=== PATIENT | male | born 1975 | race Hispanic/Latino ===

== ENCOUNTER 2018-06-11 09:16 | Day surgery (SDC) | payer OTHER, SELFPAY ==
[2018-06-08 07:55] VITALS: BMI 29.7
[2018-06-11 10:14] VITALS: BP 130/87; PULSE 61; RESP 16; TEMP 36.6; O2SAT 99; BMI 29.7
[2018-06-11] MEDS: LACTATED RINGERS 1,000 ML 42 ML IV ×2 (10:20→12:35)
--- NOTE | 2018-06-11 11:34 | PM.PREOP ---
Pre-operative Note Interval Note Pre-op Check: Yes History & Physical Reviewed by Physician Changes: No
[2018-06-11] MEDS: CEFAZOLIN 2 GM/100 ML FROZ.PIGGY IV (11:55)
--- NOTE | 2018-06-11 12:19 | SUR.OPER ---
Supine on padded OR bed, head on pillow, Right arm on large padded arm board controlled by surgical team, Left arm secured on padded arm board at <90 degrees abduction, legs uncrossed, safety belt at thigh.
[2018-06-11] MEDS: BUPIVACAINE 0.5% W/ EPI (PF) VIAL 30 ML INJ (12:33)
--- NOTE | 2018-06-11 13:07 | PM.OP.1 ---
Operative Date/Time/Diagnoses Date of procedure: 06/11/18 Time of procedure: 12:00 Pre-op diagnosis: Right distal biceps rupture Post-op diagnosis: same Procedure & Clinicians Procedure: Right distal biceps repair Same procedure as scheduled: Yes Indications: Right distal biceps rupture Surgeon: Quirino Hinton Cell Room Supervisor: Svetlana Haynes Anesthesia Type: General Operative Notes Findings: Complete rupture of the distal biceps with some attachment of pseudo tendinous material at the bicipital tuberosity Closure Type: primary Specimen(s): none sent Estimated Blood Loss (mL): 5 Blood products transfused: none Tourniquet time (min): 45 Procedure in detail: On date of service, patient was met in the holding area. Operative site was signed and witnessed by the OR staff. The surgery once again discussed with patient and any remaining questions they had were answered fully. Patient was taken back to the operating theater and placed on the operating table in the supine position. Great care taken to ensure that all bony prominences were properly padded. A well-padded tourniquet was placed up along the upper extremity. A timeout was performed to verify patient's name, procedure, and operative site. A diagonal incision was made starting at proximal medial and going to distal radial. The lateral antecubital cutaneous nerve was identified and protected. Due to the acute nature of the rupture we were able to bluntly dissect down to the bicipital tuberosity. A periosteal elevator was used to remove any remaining tendons off the footprint. Then a curved hemostat was used to retrieve the tendon. The distal end of the tendon was cleaned up. Any pseudo-tendinous material or fibrinous material was removed. Next, an Endobutton was stitched at the end of the tendons. A locking whipstitch suture was used to secure the Endobutton to the distal bicep tendon. A #2 the cord was used for the suture. 2 separate sutures were then used to go up and then down to the tendon to separate times. There was a total of 4 locking strands. These were passed through the center of the Endobutton. The tendon was then wrapped in a moist Ray-Mariangel. Next, A guidewire was placed through the bicipital tuberosity. The proximal aspect of the cortex was drilled to 8 mm. The wound was then copiously irrigated to remove any bony fragments. The distal cortex was drilled to 4 mm. The incision was irrigated again to remove any remaining bony fragments. Sutures were then placed through the lateral holes of the Endo button. These were then placed into the guidewire and passed through a bony tunnel and out the forearm. Those marionette Sutures were used to flip the Endobutton and put it into its appropriate position as a buttress. This provided a tsai repair of the biceps tendon. Next, a tenodesis screw was placed to provide additional fixation to the tendon in the bony tunnel. The wound was copiously irrigated again and closed in a layered fashion. Patient was cleaned dried and dressed and he was placed into a splint. Patient was taken to the PACU in stable condition. Postoperatively, neurovascular check was done to the hand. Patient had a 2+ radial pulse and brisk cap refill. Patient had no signs of any posterior interosseous nerve dysfunction. Patient was able to easily fully extend the fingers and the thumb. Complications: none Condition: stable Disposition: PACU Plan for aftercare: Patient will follow our postoperative protocol for distal biceps repair
[2018-06-11 13:16] VITALS: BP 111/78; PULSE 95; RESP 16; TEMP 36.3; O2SAT 91
[2018-06-11 13:20] VITALS: BP 137/85; PULSE 90; RESP 13; O2SAT 98
[2018-06-11 13:26] VITALS: BP 119/77; PULSE 80; RESP 15; O2SAT 98
[2018-06-11 13:30] VITALS: BP 119/80; PULSE 77; RESP 15; O2SAT 97
[2018-06-11] MEDS: OXYCODONE/ACETAMINOPHEN 5/325 TABLET 1 TAB PO (13:32)
[2018-06-11 13:57] VITALS: BP 121/84; PULSE 71; RESP 16; TEMP 36.6; O2SAT 98
== END 2018-06-11 14:54 | disposition home or self-care (01) ==
PROVIDERS: Visit Provider Orthopaedic Surgery
PROC: (CPT 24341; principal; 2018-06-11 14:30)
DX: S46.211A Strain of muscle, fascia and tendon of other parts of biceps, right arm, initial encounter (principal); X50.9XXA Other and unspecified overexertion or strenuous movements or postures, initial encounter; Y99.0 Civilian activity done for income or pay
CPT/HCPCS: 24342; J0690; J1100; J2405; J2704; J3010